=== PATIENT | female | born 1945 | race Caucasian/White ===

== ENCOUNTER 2017-03-17 06:52 | Day surgery (SDC) | payer OTHER ==
[2017-03-17] MEDS ORDERED: PROPOFOL 40 ML (08:10)
[2017-03-17] MEDS ORDERED: LIDOCAINE 100 MG SYRINGE (08:10)
== END 2017-03-17 09:50 | disposition home or self-care (01) ==
LOC: GIL 06:52
DX: K29.50 Unspecified chronic gastritis without bleeding (principal); K21.0 Gastro-esophageal reflux disease with esophagitis; D12.6 Benign neoplasm of colon, unspecified; K57.90 Diverticulosis of intestine, part unspecified, without perforation or abscess without bleeding; K64.4 Residual hemorrhoidal skin tags
CPT/HCPCS: 43239; 88305; 88312